=== PATIENT | female | born 1970 | race Caucasian/White ===

== ENCOUNTER 2016-09-09 07:36 | Day surgery (SDC) | payer BC ==
--- NOTE | ~2016-09-09 | EGD ---
EGD REPORT [facility] [address] [place] [address] NAME: ALAYNA PHILLIP : [birth year] STATUS : REG [facility] [place] PAT#: [id number] AGE: 46 ADM/REG DATE : 09/09/16 MR#: [id number] REPORT SERV DATE: 09/09/16 DICTATED BY: NEELIMA WEAVER DATE: 09/09/16 REPORT STATUS : Draft TRANSCRIBED BY: [employer] DATE: 09/09/16 Endoscopy Center Patient Name: Alayna Phillip Date of : 1970 Attending MD: NEELIMA WEAVER MD Procedure Date No Time: 09/09/2016 Procedure: Upper GI endoscopy Indications: Heartburn, Suspected esophageal reflux, Gastroparesis, Nausea Referring MD: DONALDO LATIF MD Medicines: as per anesthesia Complications: No immediate complications. Procedure: Pre-Anesthesia Assessment: - ASA Grade Assessment: III - A patient with severe systemic disease. After obtaining informed consent, the endoscope was passed under direct vision. Throughout the procedure, the patient's blood pressure, pulse, and oxygen saturations were monitored continuously. The GIF [id number] was introduced through the mouth, and advanced to the third part of duodenum. The upper GI endoscopy was accomplished without difficulty. The patient tolerated the procedure. Findings: The examined esophagus was normal. Localized mild inflammation characterized by erythema was found in the gastric antrum. Biopsies were taken with a cold forceps for histology. The cardia and gastric fundus were normal on retroflexion. A few sessile polyps were found in the gastric body. Biopsies were taken with a cold forceps for histology. The examined duodenum was normal. Impression: - Normal esophagus. - Gastritis. Biopsied. - A few gastric polyps. Biopsied. - Normal examined duodenum. Recommendation: - Await pathology results. - Follow an antireflux regimen. - Continue present medications. Procedure Code(s): --- Professional --- 32426, Esophagogastroduodenoscopy, flexible, transoral; with biopsy, single or multiple EGD REPORT [facility] [address] [place], [place] [address]. [address] NAME: ALAYNA PHILLIP : [birth year] STATUS : REG [facility]#: [id number] AGE: 46 ADM/REG DATE : 09/09/16 MR#: [id number] REPORT SERV DATE: 09/09/16 DICTATED BY: NEELIMA WEAVER. DATE: 09/09/16 REPORT STATUS : Draft TRANSCRIBED BY: [employer] DATE: 09/09/16 Diagnosis Code(s): --- Professional --- K29.70, Gastritis, unspecified, without bleeding K31.7, Polyp of stomach and duodenum R12, Heartburn K31.84, Gastroparesis R11.0, Nausea CPT copyright 2013 [employer]. All rights reserved. The codes documented in this report are preliminary and upon assistant technician review may be revised to meet current compliance requirements. NEELIMA WEAVER MD 09/09/2016 10:08 AM This report has been signed electronically. Number of Addenda: 0 Note Initiated On: 09/09/2016 9:50 AM Scope Withdrawal Time 0 hours 0 minutes 0 seconds [address] [place] [address]
--- NOTE | ~2016-09-09 | EGD ---
EGD REPORT [facility] [address] [place] [address] NAME: ALAYNA PHILLIP : [birth year] STATUS : REG [facility] [place] PAT#: [id number] AGE: 46 ADM/REG DATE : 09/09/16 MR#: [id number] REPORT SERV DATE: 09/09/16 DICTATED BY: NEELIMA WEAVER DATE: 09/09/16 REPORT STATUS : Draft TRANSCRIBED BY: [facility] DATE: 09/09/16 Endoscopy Center Patient Name: Alayna Phillip Date of : 1970 Attending MD: NEELIMA WEAVER MD Procedure Date No Time: 09/09/2016 Procedure: Colonoscopy Indications: High risk colon cancer surveillance: Personal history of colonic polyps Referring MD: DONALDO LATIF MD Medicines: as per anesthesia Complications: No immediate complications. Procedure: Pre-Anesthesia Assessment: - ASA Grade Assessment: III - A patient with severe systemic disease. After I obtained informed consent, the scope was passed under direct vision. Throughout the procedure, the patient's blood pressure, pulse, and oxygen saturations were monitored continuously. The PCF [id number] was introduced through the anus and advanced to the cecum, identified by appendiceal orifice and ileocecal valve. The colonoscopy was performed without difficulty. The patient tolerated the procedure. The quality of the bowel preparation was fair. Findings: The perianal and digital rectal examinations were normal. Internal hemorrhoids were found during endoscopy and were mild. Impression: - Internal hemorrhoids. Recommendation: - Repeat colonoscopy in 5 years for surveillance. Procedure Code(s): --- Professional --- 33399, Colonoscopy, flexible, proximal to splenic flexure; diagnostic, with or without collection of specimen(s) by brushing or washing, with or without colon decompression (separate procedure) Diagnosis Code(s): --- Professional --- K64.8, Other hemorrhoids Z86.010, Personal history of colonic polyps CPT copyright 2013 [employer]. All rights reserved. EGD REPORT [facility] [address] [facility] [place]. [address] NAME: ALAYNA PHILLIP : [birth year] STATUS : [place] [facility] [place] PAT#: [id number] AGE: 46 ADM/REG DATE : 09/09/16 MR#: [id number] REPORT SERV DATE: 09/09/16 DICTATED BY: NEELIMA WEAVER. DATE: 09/09/16 REPORT STATUS : Draft TRANSCRIBED BY: [employer] DATE: 09/09/16 The codes documented in this report are preliminary and upon die presser review may be revised to meet current compliance requirements. NEELIMA WEAVER MD 09/09/2016 10:26 AM This report has been signed electronically. Number of Addenda: 0 Note Initiated On: 09/09/2016 9:48 AM Scope Withdrawal Time 0 hours 6 minutes 25 seconds [address] [facility] [place] [address]
[~2016-09-09 07:36] MED LIST: AMIT75 PO; AYGESTIN5 MG PO; CEFAZ500 IM; ESTRACE1 MG PO; FLONASE NAS; GLUCPH PO; MIRALAX POWDER1 PKT PO; NEUR300 PO; NEXIUM40 PO; NORCO1 TAB PO; PROZAC40 MG PO; ZANAFLEX 4 MG TA4 MG PO
== END 2016-09-09 23:59 | disposition home or self-care (01) ==
LOC: DMU 07:36
PROVIDERS: Internal Medicine Gastroenterology
PROC: 0DJD8ZZ Inspection of Lower Intestinal Tract, Via Natural or Artificial Opening Endoscopic (ICD-10-PCS; principal; 2016-09-09 09:00)
PROC: 0DB68ZX Excision of Stomach, Via Natural or Artificial Opening Endoscopic, Diagnostic (ICD-10-PCS; 2016-09-09 09:00)
DX: K64.8 Other hemorrhoids (principal); K31.7 Polyp of stomach and duodenum; E11.43 Type 2 diabetes mellitus with diabetic autonomic (poly)neuropathy; K31.84 Gastroparesis; G43.909 Migraine, unspecified, not intractable, without status migrainosus; G25.81 Restless legs syndrome; J45.909 Unspecified asthma, uncomplicated; Z86.010 Personal history of colon polyps; Z88.0 Allergy status to penicillin; Z79.891 Long term (current) use of opiate analgesic; Z79.899 Other long term (current) drug therapy; Z90.89 Acquired absence of other organs; Z90.49 Acquired absence of other specified parts of digestive tract; Z98.890 Other specified postprocedural states
CPT/HCPCS: 82962; 84703; 88305